=== PATIENT | male | born 1935 | race Caucasian/White ===

== ENCOUNTER 2016-06-27 11:03 | Emergency (ER) | payer MEDICARE, OTHER ==
[~2016-06-27] VITALS: Ht 177.8 cm; Wt 82.7 kg
[~2016-06-27 11:03] MED LIST: ASPIRIN 32325 MG/TAB PO; LISINOPRIL5 MG PO; MULTIPLE VITAMI1 CAP PO; ZOCOR40 MG PO
[2016-06-27 11:08] VITALS: BP 134/76; TEMP 97.5
[2016-06-27] MEDS ORDERED: GLUCOPHAGE500 MG/TAB PO (11:30)
[2016-06-27] MEDS ORDERED: PRINIVIL20 MG PO (11:30)
[2016-06-27] MEDS ORDERED: SYNTHROID0.05 MG/TA PO (11:31)
[2016-06-27] MEDS ORDERED: ASPIRIN E.C. 8181 MG PO (11:31)
[2016-06-27] MEDS ORDERED: LIPITOR 40MG TA40 MG PO (11:37)
[2016-06-27] MEDS ORDERED: [UNRECOGNIZED DRUG - CODE] PO (11:39)
[2016-06-27] MEDS ORDERED: NORCO 325 MG-51 TAB PO (15:27)
[2016-06-27 15:40] VITALS: PULSE 50
== END 2016-06-27 15:40 | disposition home or self-care (01) ==
LOC: COL.ER 11:03
DX: S52.121A Displaced fracture of head of right radius, initial encounter for closed fracture (principal); S00.411A Abrasion of right ear, initial encounter; S50.311A Abrasion of right elbow, initial encounter; W55.12XA Struck by horse, initial encounter; Y92.008 Other place in unspecified non-institutional (private) residence as the place of occurrence of the external cause; E11.9 Type 2 diabetes mellitus without complications; I10 Essential (primary) hypertension; Z96.643 Presence of artificial hip joint, bilateral; Z79.84 Long term (current) use of oral hypoglycemic drugs; Z23 Encounter for immunization

== ENCOUNTER → 2016-07-22 | Outpatient (CLI) | payer MEDICARE, OTHER ==
[~2016-07-22] MED LIST changes: +ASPIRIN E.C. 8181 MG PO; +GLUCOPHAGE500 MG/TAB PO; +LIPITOR 40MG TA40 MG PO; +NORCO 325 MG-51 TAB PO; +PRINIVIL20 MG PO; +SYNTHROID0.05 MG/TA PO; +[UNRECOGNIZED DRUG - CODE] PO
== END ==
LOC: COL.RAD 06:58
DX: Z13.89 Encounter for screening for other disorder (principal); M48.8X6 Other specified spondylopathies, lumbar region; M48.06 Spinal stenosis, lumbar region; N28.1 Cyst of kidney, acquired
CPT/HCPCS: A9585

== ENCOUNTER → 2023-03-31 | Outpatient (CLI) | payer MEDICARE, BC ==
[~2023-03-31] MED LIST changes: +BRILINTA90 MG PO; +CEPHALEXIN500 M1 PO; +Iohexol 300 - 100 ML VIAL IV ONE; +NEURONTIN100 MG/CAP PO; +NORVASC 5MG5 MG/TAB PO; +NS 100 ML IV SCH; +PLAVIX 75MG TAB75 MG PO; +PRIL40 PO; +PRINIVIL40 MG PO; +PROAIR HFA0.09 MG/AC IH; +THE MEDICINE SH1 T18 PO; +TOPROL XL 25MG25 MG PO
== END ==
LOC: COL.RAD 08:32
DX: N28.89 Other specified disorders of kidney and ureter (principal); C34.12 Malignant neoplasm of upper lobe, left bronchus or lung
CPT/HCPCS: Q9967

== ENCOUNTER → 2023-04-22 | Outpatient (CLI) | payer MEDICARE, BC | LOC: COL.RAD 10:03 | DX: N28.1 Cyst of kidney, acquired (principal); K80.20 Calculus of gallbladder without cholecystitis without obstruction; R97.8 Other abnormal tumor markers; Z85.118 Personal history of other malignant neoplasm of bronchus and lung | CPT/HCPCS: Q9967 ==

== ENCOUNTER → 2023-11-24 | Outpatient (CLI) | payer MEDICARE, BC | LOC: COL.RAD 09:48 | DX: C34.12 Malignant neoplasm of upper lobe, left bronchus or lung (principal) | CPT/HCPCS: Q9967 ==